=== PATIENT | female | born 1945 | race Caucasian/White ===

== ENCOUNTER 2016-12-22 05:46 | Inpatient (IN) | payer MEDICARE ==
[2016-12-09 09:47] VITALS: BP 143/81
[~2016-12-22] VITALS: Ht 165.1 cm; Wt 74.5 kg
[~2016-12-22 05:46] MED LIST: ALBU8.5H3 INH; AMLO5TAB2 PO; ATEN50TA41 PO; ATOR20TA9 PO; CETI10TA24 PO; CLON0.2T PO; HYDR12.58 PO; LOSA100T6 PO; PRIM50TA PO
[2016-12-22] MEDS ORDERED: BUPIVACAINE/PF 0.5% ONE (06:12)
[2016-12-22] MEDS ORDERED: LIDOCAINE/MPF 2%-EPI 1:200K, 20 ML ONE (06:13)
[2016-12-22] MEDS ORDERED: CEFUROXIME 1.5 GM ONE ×2 (06:13→07:12)
[2016-12-22] MEDS ORDERED: LIDOCAINE 1%, 2ML ONE (06:23)
[2016-12-22] MEDS ORDERED: LACTATED RINGERS 1,000 ML IV SCH (06:25)
[2016-12-22] MEDS ORDERED: NITROPRUSSIDE 50 MG in DEXTROSE 5% 248 ML IV PRN (06:30)
[2016-12-22] MEDS ORDERED: LIDOCAINE 1%, 2ML SQ PRN (06:30)
[2016-12-22] MEDS ORDERED: LABETALOL 5MG/ML, 20ML ONE (07:12)
[2016-12-22] MEDS ORDERED: PROPOFOL 10 MG/ML, 50ML ONE (07:12)
[2016-12-22] MEDS ORDERED: THROMBIN 5,000 UNIT VIAL TP ONE (07:38)
[2016-12-22] MEDS ORDERED: MINERAL OIL 10 ML VIAL MC ONE (07:38)
[2016-12-22] MEDS ORDERED: BACITRACIN 50,000 UNIT ONE (09:02)
[2016-12-22] MEDS ORDERED: morphine SULFATE 10 MG/ML, 1ML IV PRN ×2 (09:30→15:00)
[2016-12-22] MEDS ORDERED: ONDANSETRON 2MG/ML, 2ML IVPush PRN (09:30)
[2016-12-22] MEDS ORDERED: PROMETHAZINE 25 MG/ML, 1ML IV PRN (09:30)
[2016-12-22] MEDS ORDERED: LABETALOL 5MG/ML, 20ML IV PRN ×2 (09:30→15:00)
[2016-12-22] MEDS ORDERED: hydrALAzine 20 MG/ML, 1ML IV PRN ×2 (09:30→15:00)
[2016-12-22] MEDS ORDERED: ACETAMINOPHEN 325 MG TABLET PO PRN ×2 (09:30→15:00)
[2016-12-22] MEDS ORDERED: BACITRACIN OINT 500U/GM, 15 GM ONE (11:53)
[2016-12-22] MEDS ORDERED: ACETAMINOPHEN 325 MG TABLET ONE (13:22)
[2016-12-22] MEDS ORDERED: ALBUTEROL SULFATE 2.5 MG/3 ML NPPB PRN (14:30)
[2016-12-22] MEDS ORDERED: HYDROcodone/APAP 5/325 TABLET PO PRN (15:00)
[2016-12-22] MEDS ORDERED: ACETAMINOPHEN 650 MG SUPP PR PRN ×2 (15:00)
[2016-12-22] MEDS ORDERED: ONDANSETRON 2MG/ML, 2ML IV PRN (15:00)
[2016-12-22] MEDS: DEXAMETHASONE 4 MG TABLET PO SCH ×2 (15:00→20:22)
[2016-12-22] MEDS: CEFUROXIME 1.5 GM in SODIUM CHLORIDE 0.9% 50 ML IVPB SCH ×2 (15:19→23:40)
[2016-12-22] MEDS: NS + 20MEQ KCL 1,000 ML IV SCH (15:20)
[2016-12-22] MEDS: DEXAMETHASONE 4 MG/ML, 1ML IV SCH ×2 (15:38→20:35)
[2016-12-22] MEDS: PRIMIDONE 50 MG TABLET PO SCH ×2 (16:35→20:35)
[2016-12-22] MEDS: ATENOLOL 50 MG TABLET PO SCH (20:35)
[2016-12-22] MEDS ORDERED: ATORVASTATIN 20 MG TABLET PO SCH (21:00)
[2016-12-22] MEDS: ACETAMINOPHEN 325 MG TABLET PO PRN (21:56)
[2016-12-23] MEDS: DEXAMETHASONE 4 MG/ML, 1ML IV SCH ×2 (03:03→08:46)
[2016-12-23] MEDS: DEXAMETHASONE 4 MG TABLET PO SCH ×2 (03:04→08:47)
[2016-12-23] MEDS: ACETAMINOPHEN 325 MG TABLET PO PRN (04:29)
[2016-12-23] MEDS: NS + 20MEQ KCL 1,000 ML IV SCH (05:36)
[2016-12-23 07:20] LABS: HEMOGLOBIN 14.6 g/dL (11.7-16.4)
[2016-12-23] MEDS ORDERED: CEPH-368 PO (07:23)
[2016-12-23 07:40] LABS: BLOOD UREA NITROGEN 8 mg/dL (7-18)
[2016-12-23] MEDS: PRIMIDONE 50 MG TABLET PO SCH (08:47)
[2016-12-23] MEDS: ATENOLOL 50 MG TABLET PO SCH (08:48)
[2016-12-23] MEDS ORDERED: LOSARTAN 50MG TABLET PO SCH (09:00)
[2016-12-23] MEDS ORDERED: HYDROCHLOROTHIAZIDE 25 MG TABLET PO SCH (09:00)
[2016-12-23] MEDS ORDERED: CETIRIZINE 10 MG TABLET PO SCH (09:00)
[2016-12-23] MEDS ORDERED: AMLODIPINE 5 MG TABLET PO SCH (09:00)
[2016-12-23] MEDS ORDERED: SENNA/DOCUSATE TABLET PO SCH (09:00)
== END 2016-12-23 10:15 | DRG 27 ==
LOC: ORIP 05:46 → EDSTATUS 07:30 → CCU 13:21 → DCLOUNGE 12-23 09:48
PROVIDERS: ADMIT Neurological Surgery; ATTEND Neurological Surgery
PROC: 00H03MZ Insertion of Neurostimulator Lead into Brain, Percutaneous Approach (ICD-10-PCS; principal; 2016-12-22 07:30)
PROC: 4B00XVZ Measurement of Central Nervous Stimulator, External Approach (ICD-10-PCS; 2016-12-23)
DX: G25.0 Essential tremor (principal); I10 Essential (primary) hypertension; J45.909 Unspecified asthma, uncomplicated; M19.90 Unspecified osteoarthritis, unspecified site; Z90.710 Acquired absence of both cervix and uterus; Z79.899 Other long term (current) drug therapy
CPT/HCPCS: 36415; 70450; 80048; 85025; 87081; J0697; J1100; J2704; J3480; J3490; C1767; J0360; J7120

== ENCOUNTER 2017-01-05 05:38 | Day surgery (SDC) | payer MEDICARE ==
[~2017-01-05] VITALS: Ht 165.1 cm; Wt 73.4 kg
[~2017-01-05 05:38] MED LIST changes: +CEPH-368 PO; +GADOBUTROL 10 MMOL/10 ML PFS ONE
[2017-01-05 06:20] VITALS: BP 120/75
[2017-01-05] MEDS ORDERED: LACTATED RINGERS 1,000 ML IV SCH (06:26)
[2017-01-05] MEDS ORDERED: LIDOCAINE 1%, 2ML SQ PRN (06:30)
[2017-01-05] MEDS ORDERED: BACITRACIN OINT 500U/GM, 15 GM ONE (07:05)
[2017-01-05] MEDS ORDERED: THROMBIN 5,000 UNIT VIAL TP ONE (07:05)
[2017-01-05] MEDS ORDERED: BUPIVACAINE/PF-EPI 0.25% 1:200K ONE (07:05)
[2017-01-05] MEDS ORDERED: BACITRACIN 50,000 UNIT ONE (07:05)
[2017-01-05] MEDS ORDERED: FENTANYL PF 100 MCG/2ML ONE (07:13)
[2017-01-05] MEDS ORDERED: LABETALOL 5MG/ML, 20ML IV PRN (07:30)
[2017-01-05] MEDS ORDERED: hydrALAzine 20 MG/ML, 1ML IV PRN (07:30)
[2017-01-05] MEDS ORDERED: ONDANSETRON 2MG/ML, 2ML IVPush PRN (07:30)
[2017-01-05] MEDS ORDERED: FENTANYL PF 100 MCG/2ML IV PRN (07:30)
[2017-01-05] MEDS ORDERED: OXYcodone 5 MG/5 ML ORAL.SOL UDC PO PRN (07:30)
[2017-01-05] MEDS ORDERED: HYDROmorphone 1 MG/ML, 1ML IV PRN (07:30)
[2017-01-05] MEDS ORDERED: PROMETHAZINE 25 MG/ML, 1ML IV PRN (07:30)
[2017-01-05] MEDS ORDERED: ACETAMINOPHEN 650 MG/20.3 ML UDC ONE (08:47)
[2017-01-05] MEDS ORDERED: ACETAMINOPHEN 325 MG TABLET PO PRN (09:00)
[2017-01-05] MEDS ORDERED: ONDANSETRON 2MG/ML, 2ML ONE (10:59)
[2017-01-05] MEDS ORDERED: DEXAMETHASONE 4 MG/ML, 1ML ONE (10:59)
[2017-01-05] MEDS ORDERED: PROPOFOL 10 MG/ML, 20ML ONE (10:59)
[2017-01-05] MEDS ORDERED: GLYCOPYRROLATE 0.2MG/1ML ONE (10:59)
[2017-01-05] MEDS ORDERED: CEFAZOLIN 1,000 MG ONE (10:59)
[2017-01-05] MEDS ORDERED: PHENYLEPHRINE 10 MG/ML ONE (10:59)
== END 2017-01-05 10:20 | disposition home or self-care (01) ==
LOC: OUT 05:38
PROVIDERS: ATTEND Neurological Surgery
DX: G25.0 Essential tremor (principal); G20 Parkinson's disease; I10 Essential (primary) hypertension; J44.9 Chronic obstructive pulmonary disease, unspecified; J45.909 Unspecified asthma, uncomplicated; M19.90 Unspecified osteoarthritis, unspecified site; Z90.710 Acquired absence of both cervix and uterus; Z98.1 Arthrodesis status; Z72.89 Other problems related to lifestyle; F17.210 Nicotine dependence, cigarettes, uncomplicated; Z82.49 Family history of ischemic heart disease and other diseases of the circulatory system; Z82.3 Family history of stroke; Z83.3 Family history of diabetes mellitus; Z80.9 Family history of malignant neoplasm, unspecified
CPT/HCPCS: 61886; 70250; 76000; C1767; C1883; J0690; J1100; J2370; J2405; J2704; J3010; J3490; J7120; L8681; A9585

== ENCOUNTER 2020-10-16 20:46 | Emergency (ER) | payer MEDICARE ==
[~2020-10-16] VITALS: Ht 162.6 cm; Wt 63.0 kg
[~2020-10-16 20:46] MED LIST changes: -ALBU8.5H3 INH; +ALBU8.5H8 INH; +AMLO-150 PO; -AMLO5TAB2 PO; +ATOR20TA37 PO; -ATOR20TA9 PO; -CETI10TA24 PO; +CETI10TA76 PO; -GADOBUTROL 10 MMOL/10 ML PFS ONE; -HYDR12.58 PO; +HYDROCHLOROTH12.5 MG PO; +LOSA100T14 PO; -LOSA100T6 PO
--- NOTE | 2020-10-16 21:05 | NUR ---
PATIENT WALKED BACK FROM TRIAGE WITH CHIEF C/O RIGHT KNEE BLEEDING. PATIENT STATES SHE HAD A TOTAL RIGHT KNEE REPLACEMENT Monday10/12/2020 WITH NO COMPLICATIONS. TODAY WAS PATIENT'S FIRST PHYSICAL THERAPY APPOINTMENT AND HER KNEE STARTED BLEEDING DURING THE APPOINTMENT. PATIENT REPORTS NO NEW PAIN EXCEPT A DULL SURGICAL PAIN. RIGHT KNEE WRAPPED IN JAN BANDAGE, SMALL AMOUNT OF DRIED BLOOD NOTED ON BANDAGE. ANNE PATEL, SPOUSE AT BEDSIDE, CALL LIGHT WITHIN REACH.
[2020-10-16] MEDS ORDERED: TRAM50TA2 PO (21:13)
--- NOTE | 2020-10-16 21:25 | NUR ---
ERMD AT BEDSIDE FOR EVALUATION.
--- NOTE | 2020-10-16 22:01 | NUR ---
APPLIED PRESSURE TO PATIENT'S INCISION SITE, RE-DRESSED WITH BANDAGE AND NEW JAN WRAP. PATIENT TOLERATED WELL.
[2020-10-16 22:21] VITALS: BP 124/49
--- NOTE | 2020-10-16 22:49 | NUR ---
Patient given discharge instructions and they have confirmed that they understand the instructions. Patient wheeled out of ED by this RN with spouse to private vehicle.
== END 2020-10-16 22:49 | disposition home or self-care (01) ==
LOC: ED 21:21
DX: M96.831 Postprocedural hemorrhage of a musculoskeletal structure following other procedure (principal); I10 Essential (primary) hypertension; F17.210 Nicotine dependence, cigarettes, uncomplicated
CPT/HCPCS: 99282; 99406